=== PATIENT | female | born 1990 | race Caucasian/White ===

== ENCOUNTER 2017-04-12 15:15 | Emergency (ER) | payer SELFPAY ==
--- NOTE | ~2017-04-12 | ER ---
PATIENT'S NAME: NEAL PAYTON [facility] AGE: 27 Y [address] ROOM: [place] [id number] LOCATION: ED ADMIT DATE: 04/12/2017 ER/Outpatient Report DISCHARGE DATE: 04/12/2017 FAMILY PHYSICIAN: PHYSICIAN, NO ATTENDING PHYSICIAN: Sorin Juarez CHIEF COMPLAINT: with IUD in place. HISTORY OF PRESENT ILLNESS: Two days ago, Ms. Payton took a test. It was positive and she started it again. She does have an IUD in place. She thinks she was supposed to have it out last year, but did not. She has no other specific complaints at this time. She does endorse breast tenderness waking up early and just not feeling well and very tired which are symptoms that she had with her first and only prior . This is not an intended , however, she does desire to do everything she can to preserve it. She denies any significant pelvic pain or vaginal bleeding. PAST MEDICAL HISTORY: Documented on the record and reviewed by me. SOCIAL HISTORY: Documented on the record and reviewed by me. MEDICATIONS: Documented on the record and reviewed by me. ALLERGIES: DOCUMENTED ON THE RECORD AND REVIEWED BY ME. REVIEW OF SYSTEMS: All systems were reviewed and negative except as noted in the HPI. PHYSICAL EXAMINATION: VITAL SIGNS: Blood pressure is 129/74, pulse 109, respiratory rate 16, temperature 98 degrees, SpO2 is 97% on room air. Pain 0/10. GENERAL: Age appropriate female, sitting upright on the exam table, in no apparent pain or distress. Anxious appearance, however. NEUROLOGIC: Awake and alert. GCS 15. No focal deficits. No asymmetry. HEENT: Normocephalic, atraumatic. Eyes are PERRL. Oropharynx is clear. NECK: Supple. Trachea is midline. CHEST: Heart is regular. Tachycardia. No murmurs. LUNGS: Clear to auscultation bilateral. No rhonchi, wheezes, or rales. ABDOMEN: Soft, nontender, and nondistended. No rebound or guarding. PATIENT'S NAME: NEAL PAYTON [facility] AGE: 27 Y [address] ROOM: [place] [id number] LOCATION: ED ADMIT DATE: 04/12/2017 ER/Outpatient Report DISCHARGE DATE: 04/12/2017 FAMILY PHYSICIAN: PHYSICIAN, NO ATTENDING PHYSICIAN: Sorin Juarez BACK: Normal to inspection and palpation. : Normal external female genitalia. Vaginal vault is without appreciable abnormalities. The cervix is posterior. The strings of the IUD are visible, but the IUD would not remove easily. EXTREMITIES: Warm and well perfused. No deformities or edema. SKIN: Clean, dry, and intact. LABORATORY DATA AND X-RAYS: Ultrasound does not reveal any evidence of ectopic . There is a 4 cm right ovarian cyst and scant free fluid in the posterior cul-de-sac. Lab work: Urinalysis is unremarkable. CMS does have some slight elevation of AST and ALT of unclear etiology. Serum hCG is 39. CBC: White count is 11.8 with monos predominant. Hemoglobin 13.7, platelets of 262, blood type is A positive. IMPRESSION: Early with intrauterine device in place. EMERGENCY DEPARTMENT COURSE: The patient was seen and evaluated. was confirmed. I cannot identify location at this time which is not surprising with an HCG of 39. However, ectopic is strongly considered. With the patient having no pain and no signs of bleeding, I think it is reasonable for her to follow up with [facility] on Friday for removal of the IUD. [facility] was [facility]. I did discuss the case with Dr. Bal Watkins and she recommended attempts to remove the IUD which I performed and I was unsuccessful as the IUD did not come out easily. This was somewhat complicated by the retroflexed cervix. I spent significant amounts of time discussing the risks and benefits of IUD removal with the patient. She wished to proceed with attempt. I believe there was minimal risk in waiting 24 hours as I was unable to remove the IUD. The patient does have an incidental elevation of transaminases, but no evidence of hepatic inflammation, otherwise. These will need to be followed up as needed. All questions were answered. The patient was discharged. MD JONH FELIPE/ania [facility] 27 [facility] [address] ROOM: [place] [id number] LOCATION: [facility] ADMIT DATE: 04/12/2017 ER/Outpatient Report DISCHARGE DATE: 04/12/2017 FAMILY PHYSICIAN: LINDA ARCOS ATTENDING PHYSICIAN: Sorin Juarez /[id number] d: 04/13/17742 t: 04/22/17621, OUTPATIENT REPORT
[~2017-04-12 15:15] MED LIST: NORCO 5-325 MG1 TAB PO
[2017-04-12 15:48] LABS: BASOPHIL # 0.1 K/uL (0.0-0.2); BASOPHIL % 0.7 %; EOSINOPHIL # 0.2 K/uL (0.0-0.5); EOSINOPHIL % 1.4 %; HEMOGLOBIN 13.7 g/dL (11.0-15.0); IMMATURE GRANULOCYTE # 0.1 K/uL (0.0-0.3); IMMATURE GRANULOCYTE % 0.7 %; LYMPHOCYTE # 2.7 K/uL (0.8-4.0); LYMPHOCYTE % 22.7 %; MCH 31.9 pg (27.0-34.0); MCHC 36.1 gm/dL (32.0-36.5); MCV 88.6 fl (83.0-98.0); MONOCYTE # 1.2 K/uL (0.0-1.0); MPV 9.2 fl (9.4-12.4); NEUTROPHIL # (ANC) 7.7 K/uL (1.8-7.8); NEUTROPHIL % 64.5 %; NRBC % 0 /100WBC (0-0.00); PLATELET COUNT 262 K/uL (150-450); RDW-CV 11.8 % (11.9-14.6); WBC 11.8 K/uL (4.0-11.0)
[2017-04-12 15:51] LABS: RBC 4.29 M/uL (3.50-5.00)
[2017-04-12 15:52] LABS: BILIRUBIN URINE NEGATIVE (NEGATIVE); BLOOD URINE NEGATIVE /UL (NEGATIVE); COLOR URINE YELLOW (YELLOW); GLUCOSE URINE NEGATIVE (NEGATIVE); KETONE URINE NEGATIVE (NEGATIVE); LEUKOCYTES URINE NEGATIVE /UL (NEGATIVE); NITRITE URINE NEGATIVE (NEGATIVE); PROTEIN URINE NEGATIVE (NEGATIVE); TURBIDITY URINE CLEAR (CLEAR); UROBILINOGEN URINE NORMAL (NORMAL)
[2017-04-12 16:09] LABS: ALBUMIN 3.7 gm/dL (3.5-5.0); ALK PHOS 76 IU/L (33-138); ALT 111 IU/L (12-78); ANION GAP 11.9 (10.0-19.0); AST 50 IU/L (10-40); BLOOD UREA NITROGEN 17 mg/dL (6-24); CALCIUM 8.5 mg/dL (8.5-10.5); CHLORIDE 110 mMol/L (96-110); CO2 23 mMol/L (22-32); CREATININE 0.7 mg/dL (0.5-1.1); POTASSIUM 3.9 mMol/L (3.7-5.1); SODIUM 141 mMol/L (135-145); TOTAL BILIRUBIN 0.3 mg/dL (0.0-1.5); TOTAL PROTEIN 7.1 g/dL (6.0-8.4)
== END 2017-04-12 17:22 | disposition disaster alternative care site (69) ==
LOC: GMED 15:15
PROVIDERS: Emergency Medicine
DX: O26.31 Retained intrauterine contraceptive device in pregnancy, first trimester (principal); O34.81 Maternal care for other abnormalities of pelvic organs, first trimester; Z90.49 Acquired absence of other specified parts of digestive tract; Z3A.00 Weeks of gestation of pregnancy not specified